=== PATIENT | male | born 1965 | race Caucasian/White ===

== ENCOUNTER 2020-10-03 22:53 | Emergency (ER) | payer OTHER, SELFPAY ==
[2020-10-03 22:54] VITALS: BP 162/82; PULSE 94; RESP 18; TEMP 36.2; O2SAT 94; BMI 36.0
[2020-10-03 22:59] VITALS: O2SAT 92
--- NOTE | 2020-10-03 23:17 | ED.DCSUM_ITS ---
History of Present Illness Chief Complaint: Shortness of Breath Informant: Patient Onset: Today Timing: Intermittent Quality: bronchospasm, w/ coughing only Location: chest Current Severity: Mild Maximum Severity: Moderate Worsened by: coughing Relieved by: not coughing Associated Symptoms: low-grade fevers, malaise, [employer] cough Narrative: Patient started with headaches 4-5 days ago, leading to nonproductive cough and low-grade fevers. He was tested for Covid as an outpatient and yesterday it returned positive. Today his cough became worse, he had some episodes of bronchospasm, he has the sensation that he needs to cough something up that is in his bronchial tubes but it woke him up so he could not stop coughing at home, and it made him feel little short of breath. He denies any dyspnea without coughing, even with exerting himself. He has no history of heart or lung disease. 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 When he stopped coughing, the saturations did not seem to come up, so he came to the ER for further evaluation. He denies any chest pain, or other new symptoms with this. He has also been on a Z-Chet since he was tested. - Past Medical History (1) HTN (hypertension) Status: Chronic (2) Hyperlipidemia Status: Chronic Past Medical History - Allergies and Home Meds Allergies/Adverse Reactions: Allergies No Known Allergies Allergy (Verified 10/03/20 22:56) Primary Care Physician: Rayshawn Dixon DO [Primary Care Provider] - 1 Week if not improving Lives: Spouse/ Significant Other Smoking Status: Never smoker Review of Systems General: Reports: Fever, Malaise. Denies: Chills, Sweats Eyes: Denies: Visual changes - bilaterally, Diplopia ENT: Denies: Bilateral ear pain, Rhinorrhea, Sore throat Cardiovascular: Denies: Chest pain, Palpitations, Heart racing Respiratory: Reports: Cough. Denies: Dyspnea, Sputum, Dyspnea on exertion, Orthopnea Gastrointestinal: Denies: Abdominal pain, Nausea, Vomiting, Diarrhea, Melena, Hematochezia Genitourinary: Denies: Dysuria, Hematuria, Frequency Musculoskeletal: Reports: Myalgias. Denies: Back pain, Swelling, Extremity Pain Skin: Denies: Rash, Wounds Neurological: Reports: Headache. Denies: Weakness, Numbness Physical Exam Vital Signs/Narrative: Vital Signs Temp Pulse Resp BP Pulse Ox 10/03/20 22:59 92 10/03/20 22:54 97.2 F L 94 18 162/82 H 94 Inital Vital Signs reviewed: Yes General: Well nourished, Well developed, No Acute Distress Head: Normocephalic, Atraumatic Eyes: Perrl, EOMI ENT: Moist mucous membranes, No rhinorrhea Neck: Supple, Nontender Cardiovascular: Regular rate, Regular rhythm, No murmurs Respiratory: No distress, CTA bilaterally, Chest nontender Abdomen: Soft, Nontender, Nondistended, Normal bowel sounds Back: Nontender, Normal Inspection Extremities: Nontender, No edema. Negative for: Calf Tenderness Skin: Normal color, No rash, No Trauma Neurological: Alert, Oriented x3, Cranial nerves II-XII grossly intact, Normal Strength, Normal Sensation, Normal Gait Psychological: Normal affect, Normal Mood Diagnostic/Tx/Re-eval Chest X-Ray - ED: 1 View, Read by ED Physician, Right Infiltrate, Left Infiltrate Clinical Impression(s) from Imaging Studies Chest X-Ray 10/03/20 23:25 IMPRESSION: Bilateral pneumonia. Electronically Signed: Rogelio Morejon MD at 23:38 EST , Service support , - Medical Decision Making My interpretation chest x-ray appears to show early bibasilar patchy infiltrates, consistent with COVID-19 which the patient is already tested positive for. Radiology interpretation returned a short time later, which is in agreement as above. He is doing well. Here in the ER his pulse ox is between 92-95 on room air, including with exertion. Given that he was in the high 80s at home, I think it would be reasonable to send him home on oxygen, which we are currently able to do. He agrees, he is not critically ill, and would unlikely benefit from hospitalization otherwise at this time. He is comfortable going home. Given that he requires a small amount of oxygen, will put him on Decadron as well as an albuterol inhaler to use as needed. He is to continue the Z-Chet until finished. We discussed reasons to return and he is comfortable with that plan. ED Disposition - Plan for ED Patient: Disposition: Home or Assisted Living Diagnosis: Pneumonia due to COVID-19 virus Instructions: ED PNEUMONITIS Adult Prescriptions: Dexamethasone [Decadron] 6 mg PO DAILY 7 Days #7 tab Prescription Printed Albuterol Inhaler [Ventolin Hfa] 1 - 2 puff INHALATION Q4H PRN PRN #1 inhaler PRN Reason: Wheezing Prescription Printed Referrals: Rayshawn Dixon DO [Primary Care Provider] - 1 Week if not improving Additional Instructions: Use oxygen as needed to keep her pulse ox at or above 90%. If you are needing more than 4 L through nasal cannula to keep your saturations up, consider returning to the hospital.
--- NOTE | 2020-10-03 23:25 | RAD_ITS ---
STUDY: X-RAY CHEST REASON FOR EXAM: Male, 55 years old. +COVID YESTERDAY. INC SOB THIS EVENING. HOME PULSE OX 87%. COUGH, FEVER, CHILLS. TECHNIQUE: Single AP portable view of the chest. COMPARISON: None. FINDINGS: There are groundglass increased opacities of the bilateral lungs. There is no demonstrated pleural abnormality. Normal size heart. Normal mediastinum and magalys. Normal visualized pulmonary arteries. Normal visualized aortic arch and descending thoracic aorta. There are diffuse degenerative changes of the visualized thoracic spine. Normal visualized ribs, clavicles, and shoulders. There is no demonstrated abnormality of the visualized soft tissue structures of the upper abdomen. RAD/Chest 1 View (Portable) IMPRESSION: Bilateral pneumonia. Electronically Signed: Rogelio Morejon MD at 23:38 EST , Service support ,
[2020-10-04] VITALS: PULSE 88; O2SAT 94
== END 2020-10-04 00:40 | disposition home or self-care (01) ==
PROVIDERS: Emergency Provider Emergency Medicine; PCP Student in an Organized Health Care Education/Training Program
DX: U07.1 COVID-19 (principal); J12.89 Other viral pneumonia
CPT/HCPCS: 71045; 99282